=== PATIENT | male | born 1990 | race Caucasian/White ===

== ENCOUNTER 2020-09-20 14:26 | Outpatient (CLI) | payer OTHER, SELFPAY ==
--- NOTE | ~2020-09-20 | MR_ITS ---
EXAMINATION: MR lumbar spine [facility] EXAM DATE: 09/20/2020 15:03 INDICATION: Lumbar pain with left sciatica lumbar pain with left sciatica. TECHNIQUE: Multi-sequential, multiplanar MR images of the lumbar spine were obtained without contrast . Sagittal T1, T2, T2 fat saturation images. Axial T2 weighted images. There is no prior study for comparison. FINDINGS: There is mild to moderate disc disease L4-S1. There is 3 mm retrolisthesis L4 on L5, 4 mm r etrolisthesis L5 on S1. The vertebral body and disc heights are otherwise well maintained. The verteb ral bodies are otherwise aligned. The conus medullaris terminates at the L1/2 level and has normal si gnal intensity and morphology. There are no suspicious marrow signal abnormalities. Paraspinal soft tissue is unremarkable. Level by level evaluation: T12-L1: Disc does not extend beyond the endplate margin. Facet arthropathy: Mild. Neural foraminal stenosis: No stenosis. Central canal stenosis: No stenosis. L1-L2: Disc does not extend beyond the endplate margin. Facet arthropathy: Mild. Neural foraminal stenosis: No stenosis. Central canal stenosis: No stenosis. L2-L3: Disc does not extend beyond the endplate margin. Facet arthropathy: Mild. Neural foraminal stenosis: No stenosis. Central canal stenosis: No stenosis. L3-L4: There is a minimal diffuse disc bulge. Facet arthropathy: Mild. Neural foraminal stenosis: Minimal bilateral. Central canal stenosis: No stenosis. L4-L5: There is a mild to moderate diffuse disc bulge. Facet arthropathy: Mild to moderate. Neural foraminal stenosis: Mild to moderate bilateral. Central canal stenosis: Mild to moderate. L5-S1: There is a mild to moderate diffuse disc bulge. Facet arthropathy: Mild. Neural foraminal stenosis: Moderate bilateral. Central canal stenosis: Mild to moderate. IMPRESSION: 1. Mild to moderate lower lumbar spondylosis. Reviewed, dictated and finalized at location B. WARE EDUCATOR
== END 2020-09-20 14:27 ==
PROVIDERS: PCP Emergency Medicine; Visit Provider Emergency Medicine
DX: M47.27 Other spondylosis with radiculopathy, lumbosacral region (principal); M48.07 Spinal stenosis, lumbosacral region
CPT/HCPCS: 72148

== ENCOUNTER 2022-10-24 11:47 | Outpatient (CLI) | payer OTHER, SELFPAY ==
--- NOTE | ~2022-10-24 | XR_ITS ---
EXAMINATION: XR ankle LT 2V DATE: 10/24/2022 12:06 INDICATION: Left ankle pain TECHNIQUE: Two views of the left ankle are obtained.. COMPARISON: None. FINDINGS: There is moderate lateral soft tissue swelling of ankle. No definite acute fracture is iden tified. There is mild cortical irregularity in the anterior aspect of the distal tibia on the lateral view which has the appearance of prior injury. Alignment is normal. IMPRESSION: 1. Soft tissue swelling without acute osseous abnormality identified. Reviewed, dictated and finalized at location L. 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
== END 2022-10-24 11:48 ==
PROVIDERS: PCP Emergency Medicine; Visit Provider Emergency Medicine
DX: M25.572 Pain in left ankle and joints of left foot (principal); M79.89 Other specified soft tissue disorders
CPT/HCPCS: 73600